=== PATIENT | female | born 1960 | race African-American/Black ===

== ENCOUNTER 2017-04-04 21:36 | Emergency (ER) | payer MEDICAID ==
[~2017-04-04] VITALS: Ht 175.3 cm; Wt 63.0 kg
[~2017-04-04 21:36] MED LIST: LEVE500T78 PO; OMEP20CA4 PO; PANT40TA4 PO; POTA10TA19 PO; RANI300T4 PO; SUCR1ORA PO
[2017-04-04 21:39] VITALS: BP 131/59
== END 2017-04-05 02:15 | disposition left against medical advice (07) ==
LOC: ER 21:36
DX: R10.32 Left lower quadrant pain (principal); R10.31 Right lower quadrant pain; Z53.21 Procedure and treatment not carried out due to patient leaving prior to being seen by health care provider

== ENCOUNTER 2017-05-10 20:15 | Emergency (ER) | payer MEDICAID ==
[~2017-05-10] VITALS: Ht 165.1 cm; Wt 68.2 kg
[2017-05-10] MEDS ORDERED: KETOROLAC 30MG/ML VIAL IV STA (21:45)
[2017-05-10] MEDS ORDERED: SODIUM CHLORIDE 0.9% 1,000 ML IV ONE (21:45)
[2017-05-10 22:47] LABS: BASOPHILS % 0.6 % (0.0-2.0); EOSINOPHILS % 4.3 % (0.0-5.0); HEMATOCRIT. 32.5 % (36.0-48.0); HEMOGLOBIN. 10.5 g/dL (12.0-16.0); LYMPHOCYTES % 24.1 % (20.0-50.0); MEAN CORPUSCULAR HEMOGLOBIN 27.4 pg (28.0-32.0); MEAN CORPUSCULAR VOLUME 84.6 fL (81.0-99.0); MEAN PLATELET VOLUME 7.6 fl (7.4-10.4); MONOCYTES % 7.7 % (2.0-8.0); NEUTROPHILS % 63.3 % (40.0-76.0); PLATELET 202 x1000/uL (130-400); RED BLOOD CELL COUNT 3.84 mill/uL (4.2-5.4); RED CELL DISTRIBUTION WIDTH 14.8 % (11.6-14.6)
[2017-05-10 22:53] LABS: INR 1.1; PROTHROMBIN TIME 11.1 sec (9.4-11.6)
[2017-05-10 22:54] LABS: CHLORIDE 108 mEq/L (98-107)
[2017-05-10 22:56] LABS: CARBON DIOXIDE 28 mEq/L (21-32)
[2017-05-10 23:50] LABS: CLARITY URINE CLEAR (CLEAR); COLOR URINE DARK YELLOW (YELLOW); GLUCOSE URINE NEGATIVE (NEGATIVE); KETONES URINE NEGATIVE (NEGATIVE); LEUKOCYTE ESTERASE URINE 2+ (NEGATIVE); NITRITE URINE NEGATIVE (NEGATIVE); OCCULT BLOOD URINE NEGATIVE (NEGATIVE); PH URINE 5.5 (4.5-8.0); PROTEIN URINE TRACE (NEGATIVE); SPECIFIC GRAVITY URINE 1.028 (1.005-1.030)
[2017-05-11] VITALS: BP 135/76
== END 2017-05-11 00:30 | disposition home or self-care (01) ==
LOC: ER 20:15
DX: N30.00 Acute cystitis without hematuria (principal); Z87.19 Personal history of other diseases of the digestive system
CPT/HCPCS: 36415; 74176; 80053; 81001; 83690; 85025; 85610; 96361; 96374; 99285; J1885; J7030; Z7610

== ENCOUNTER 2017-05-25 23:05 | Emergency (ER) | payer MEDICAID ==
[~2017-05-25] VITALS: Ht 160 cm; Wt 64.0 kg
[2017-05-26 02:00] LABS: BASOPHILS % 0.6 % (0.0-2.0); EOSINOPHILS % 3.9 % (0.0-5.0); HEMATOCRIT. 31.1 % (36.0-48.0); HEMOGLOBIN. 10.2 g/dL (12.0-16.0); LYMPHOCYTES % 27.3 % (20.0-50.0); MEAN CORPUSCULAR HEMOGLOBIN 27.5 pg (28.0-32.0); MEAN CORPUSCULAR VOLUME 83.8 fL (81.0-99.0); MEAN PLATELET VOLUME 7.1 fl (7.4-10.4); MONOCYTES % 8.1 % (2.0-8.0); NEUTROPHILS % 60.1 % (40.0-76.0); PLATELET 191 x1000/uL (130-400); RED BLOOD CELL COUNT 3.71 mill/uL (4.2-5.4); RED CELL DISTRIBUTION WIDTH 14.5 % (11.6-14.6)
[2017-05-26 02:06] LABS: CHLORIDE 108 mEq/L (98-107)
[2017-05-26 02:16] LABS: CARBON DIOXIDE 29 mEq/L (21-32)
[2017-05-26 02:23] LABS: CLARITY URINE CLEAR (CLEAR); COLOR URINE YELLOW (YELLOW); GLUCOSE URINE NEGATIVE (NEGATIVE); KETONES URINE NEGATIVE (NEGATIVE); LEUKOCYTE ESTERASE URINE 2+ (NEGATIVE); NITRITE URINE NEGATIVE (NEGATIVE); OCCULT BLOOD URINE NEGATIVE (NEGATIVE); PROTEIN URINE NEGATIVE (NEGATIVE)
[2017-05-26 02:52] VITALS: BP 122/79
== END 2017-05-26 03:54 | disposition home or self-care (01) ==
LOC: ER 23:05
DX: R10.9 Unspecified abdominal pain (principal); G89.29 Other chronic pain; G40.909 Epilepsy, unspecified, not intractable, without status epilepticus; Z87.19 Personal history of other diseases of the digestive system
CPT/HCPCS: 36415; 80053; 81001; 85025; 99284

== ENCOUNTER 2017-07-25 11:13 | Emergency (ER) | payer MEDICAID ==
[~2017-07-25] VITALS: Ht 157.5 cm; Wt 80.0 kg
[2017-07-25] MEDS ORDERED: SODIUM CHLORIDE 0.9% 1,000 ML IV ONE (12:16)
[2017-07-25] MEDS ORDERED: LEVETIRACETAM 500MG PREMIX 100 ML IV ONE (12:30)
[2017-07-25 12:57] LABS: BASOPHILS % 0.6 % (0.0-2.0); EOSINOPHILS % 3.8 % (0.0-5.0); HEMATOCRIT. 33.2 % (36.0-48.0); HEMOGLOBIN. 11.1 g/dL (12.0-16.0); LYMPHOCYTES % 26.8 % (20.0-50.0); MEAN CORPUSCULAR HEMOGLOBIN 28.6 pg (28.0-32.0); MEAN CORPUSCULAR VOLUME 85.4 fL (81.0-99.0); MEAN PLATELET VOLUME 7.4 fl (7.4-10.4); MONOCYTES % 7.9 % (2.0-8.0); NEUTROPHILS % 60.9 % (40.0-76.0); PLATELET 177 x1000/uL (130-400); RED BLOOD CELL COUNT 3.89 mill/uL (4.2-5.4); RED CELL DISTRIBUTION WIDTH 15.2 % (11.6-14.6)
[2017-07-25 13:00] LABS: INR 1.1; PROTHROMBIN TIME 11.2 sec (9.4-11.6)
[2017-07-25 13:05] LABS: CLARITY URINE CLEAR (CLEAR); COLOR URINE YELLOW (YELLOW); GLUCOSE URINE NEGATIVE (NEGATIVE); KETONES URINE NEGATIVE (NEGATIVE); LEUKOCYTE ESTERASE URINE 2+ (NEGATIVE); NITRITE URINE NEGATIVE (NEGATIVE); OCCULT BLOOD URINE NEGATIVE (NEGATIVE); PROTEIN URINE NEGATIVE (NEGATIVE)
[2017-07-25 13:08] LABS: AMMONIA 29 uMol/L (<32)
[2017-07-25 13:17] LABS: CARBON DIOXIDE 28 mEq/L (21-32); CHLORIDE 107 mEq/L (98-107); ETHANOL BLOOD < 10 mg/dL; TROPONIN I < 0.02 ng/mL (0.00-0.04)
[2017-07-25 13:22] LABS: CARBAMAZEPINE < 0.5 ug/mL (4-12); PHENOBARBITAL < 2.1 ug/mL (15.0-40.0); VALPROIC ACID < 3.0 ug/mL (50-100)
[2017-07-25 13:33] LABS: *AMPHETAMINES SCREEN URINE NEGATIVE (NEGATIVE); *BARBITURATES SCREEN URINE NEGATIVE (NEGATIVE); *BENZODIAZEPINES SCREEN URINE NEGATIVE (NEGATIVE); *COCAINE SCREEN URINE NEGATIVE (NEGATIVE); CANNABINOID URINE SCREEN NEGATIVE (NEGATIVE); METHADONE URINE SCREEN NEGATIVE (NEGATIVE); OPIATES URINE SCREEN NEGATIVE (NEGATIVE); PHENCYCLIDINE URINE SCREEN NEGATIVE (NEGATIVE)
[2017-07-25 15:21] VITALS: BP 120/80
== END 2017-07-25 15:48 | disposition home or self-care (01) ==
LOC: ER 11:13
DX: G40.909 Epilepsy, unspecified, not intractable, without status epilepticus (principal); D72.819 Decreased white blood cell count, unspecified; D64.9 Anemia, unspecified
CPT/HCPCS: 36415; 80053; 80156; 80165; 80184; 80185; 80305; 81001; 82140; 83880; 84484; 85025; 85610; 93005; 96365; 99285; G0482; J1953; Z7610; J7030

== ENCOUNTER 2017-08-25 07:14 | Emergency (ER) | payer MEDICAID ==
[~2017-08-25] VITALS: Ht 167.6 cm; Wt 62.0 kg
[2017-08-25 08:15] LABS: EOSINOPHILS % 4.5 % (0.0-5.0); HEMATOCRIT. 33.2 % (36.0-48.0); HEMOGLOBIN. 10.9 g/dL (12.0-16.0); LYMPHOCYTES % 24.8 % (20.0-50.0); MEAN CORPUSCULAR HEMOGLOBIN 28.1 pg (28.0-32.0); MEAN CORPUSCULAR VOLUME 85.6 fL (81.0-99.0); MEAN PLATELET VOLUME 7.5 fl (7.4-10.4); MONOCYTES % 6.7 % (2.0-8.0); PLATELET 220 x1000/uL (130-400); RED BLOOD CELL COUNT 3.88 mill/uL (4.2-5.4); RED CELL DISTRIBUTION WIDTH 15.3 % (11.6-14.6)
[2017-08-25 08:27] LABS: CARBON DIOXIDE 29 mEq/L (21-32); CHLORIDE 108 mEq/L (98-107)
[2017-08-25 10:11] LABS: CLARITY URINE CLEAR (CLEAR); COLOR URINE YELLOW (YELLOW); KETONES URINE NEGATIVE (NEGATIVE); LEUKOCYTE ESTERASE URINE 3+ (NEGATIVE); NITRITE URINE NEGATIVE (NEGATIVE); OCCULT BLOOD URINE NEGATIVE (NEGATIVE); PH URINE 7.5 (4.5-8.0); PROTEIN URINE NEGATIVE (NEGATIVE); SPECIFIC GRAVITY URINE 1.011 (1.005-1.030)
[2017-08-25 11:55] VITALS: BP 129/76
== END 2017-08-25 12:00 | disposition home or self-care (01) ==
LOC: ER 07:14
DX: G40.909 Epilepsy, unspecified, not intractable, without status epilepticus (principal); R10.9 Unspecified abdominal pain; G89.29 Other chronic pain
CPT/HCPCS: 36415; 71010; 80053; 81001; 85025; 99285

== ENCOUNTER 2017-10-08 18:38 | Emergency (ER) | payer MEDICAID ==
[~2017-10-08] VITALS: Ht 165.1 cm; Wt 65.0 kg
[2017-10-08 18:41] VITALS: BP 127/70
== END 2017-10-08 22:00 | disposition left against medical advice (07) ==
LOC: ER 18:48
DX: R10.9 Unspecified abdominal pain (principal); Z53.21 Procedure and treatment not carried out due to patient leaving prior to being seen by health care provider

== ENCOUNTER 2025-05-22 20:20 | Inpatient (IN) | payer MEDICARE, MEDICAID ==
[~2025-05-22] VITALS: Ht 160 cm; Wt 61.0 kg
[~2025-05-22 20:20] MED LIST changes: +LEVE-20 PO; -LEVE500T78 PO; -PANT40TA4 PO; +PANT40TA51 PO; -POTA10TA19 PO; +[UNRECOGNIZED DRUG - CODE] PO
[2025-05-22 20:23] VITALS: O2SAT 95
[2025-05-22 21:57] LABS: BASOPHILS % 0.7 % (0.0-2.0); EOSINOPHILS % 3.3 % (0.0-5.0); HEMATOCRIT. 34.9 % (36.0-48.0); HEMOGLOBIN. 11.0 g/dL (12.0-16.0); LYMPHOCYTES % 25.9 % (20.0-50.0); MEAN PLATELET VOLUME 7.2 fl (7.4-10.4); MONOCYTES % 5.6 % (2.0-8.0); NEUTROPHILS % 64.5 % (40.0-76.0); PLATELET 178 x1000/uL (130-400); RED BLOOD CELL COUNT 4.08 mill/uL (4.2-5.4); RED CELL DISTRIBUTION WIDTH 14.8 % (11.6-14.6)
[2025-05-22 22:12] LABS: CREATININE 0.6 mg/dL (0.6-1.0); UREA NITROGEN BLOOD 8 mg/dL (9-23)
[2025-05-22 22:14] LABS: ASPARTATE AMINOTRANSFERASE 216 IU/L (<34); BILIRUBIN DIRECT 0.2 mg/dL (<=3.0); BILIRUBIN TOTAL 0.4 mg/dL (0.1-1.0); PROTEIN TOTAL 7.3 g/dL (6.0-8.3)
[2025-05-22] MEDS: ONDANSETRON HCL 4MG/2ML INJ IV NR (22:31)
[2025-05-22] MEDS: MORPHINE SULFATE 4 MG/ML INJ (FOR IV/IM USE) IV NR (22:31)
[2025-05-23] MEDS: SODIUM CHLORIDE 0.9% 1,000 ML IV ONE (00:20)
[2025-05-23] MEDS ORDERED: MORPHINE SULFATE 4 MG/ML INJ (FOR IV/IM USE) IV PRN (01:15)
[2025-05-23] MEDS ORDERED: ACETAMINOPHEN 325MG TABLET PO PRN (01:15)
[2025-05-23] MEDS ORDERED: MAGNESIUM/ALUMINUM HYDROXIDE/SIMETHICONE 30ML UDC PO PRN (01:15)
[2025-05-23] MEDS ORDERED: CLONIDINE 0.1MG TABLET PO PRN (01:15)
[2025-05-23] MEDS ORDERED: ONDANSETRON HCL 4MG/2ML INJ IV PRN (01:15)
[2025-05-23] MEDS ORDERED: ZOLPIDEM TARTRATE 5MG TABLET PO PRN (01:15)
[2025-05-23] MEDS ORDERED: NALOXONE HCL 0.4MG/ML VIAL IV PRN (01:30)
[2025-05-23] MEDS: PIPERACILLIN/TAZO 3.375G/50ML 50 ML IV NR (01:35)
[2025-05-23] MEDS: SODIUM CHLORIDE 0.9% (SEPSIS BOLUS) IV NR (01:35)
[2025-05-23] MEDS: SODIUM CHLORIDE 0.9% 1,000 ML IV SCH (02:21)
[2025-05-23 03:56] LABS: CLARITY URINE CLEAR (CLEAR); COLOR URINE YELLOW (YELLOW); GLUCOSE URINE NEGATIVE (NEGATIVE); KETONES URINE NEGATIVE (NEGATIVE); LEUKOCYTE ESTERASE URINE NEGATIVE (NEGATIVE); NITRITE URINE NEGATIVE (NEGATIVE); OCCULT BLOOD URINE NEGATIVE (NEGATIVE); PH URINE 8.0 (4.5-8.0); PROTEIN URINE NEGATIVE (NEGATIVE); SPECIFIC GRAVITY URINE 1.047 (1.005-1.030); UROBILINOGEN URINE 2.0 E.U./dL (0.2-1.0)
[2025-05-23 04:10] LABS: *AMPHETAMINES SCREEN URINE NEGATIVE (NEGATIVE); *BARBITURATES SCREEN URINE NEGATIVE (NEGATIVE); *BENZODIAZEPINES SCREEN URINE NEGATIVE (NEGATIVE); *COCAINE SCREEN URINE NEGATIVE (NEGATIVE); CANNABINOID URINE SCREEN NEGATIVE (NEGATIVE); ECSTASY MDMA SCREEN URINE NEGATIVE (NEGATIVE); METHADONE URINE SCREEN NEGATIVE (NEGATIVE); OPIATES URINE SCREEN PRESUMPTIVE POSITIVE (NEGATIVE); PHENCYCLIDINE URINE SCREEN NEGATIVE (NEGATIVE)
[2025-05-23 05:04] LABS: BACTERIA URINE NONE SEEN; RBC URINE NONE SEEN /hpf (0-2); SQUAMOUS EPITHELIAL CELL URINE 1+ /lpf (RARE/1+); WBC URINE NONE SEEN /hpf (0-2)
[2025-05-23 06:20] VITALS: BP 123/62; PULSE 65; RESP 18; TEMP 36.2; O2SAT 100
[2025-05-23 06:30] VITALS: BP 123/62; PULSE 65; RESP 18; TEMP 36.1956
[2025-05-23] MEDS ORDERED: IOHEXOL-300 100 ML BOTTLE ONE (07:19)
[2025-05-23 08:00] VITALS: BP 129/72; PULSE 64; RESP 18; TEMP 36.2; O2SAT 100
[2025-05-23] MEDS: PANTOPRAZOLE SODIUM 40 MG/VIAL IV SCH (09:15)
[2025-05-23] MEDS: PIPERACILLIN/TAZO 3.375G/50ML 50 ML IV SCH (09:15)
[2025-05-23] MEDS: ENOXAPARIN 40MG/0.4ML SYR SUBCUT SCH (09:16)
[2025-05-23 16:00] VITALS: BP 143/72; PULSE 66; RESP 18; TEMP 36.3; O2SAT 99
[2025-05-23 20:00] VITALS: BP 132/72; PULSE 66; RESP 20; TEMP 36.1; O2SAT 98
[2025-05-23] MEDS ORDERED: LEVETIRACETAM 500MG in NACL 100ML PREMIX IV SCH (21:00)
[2025-05-23] MEDS: LEVETIRACETAM 500MG PREMIX 100ML IV SCH (21:08)
[2025-05-24] VITALS: BP 133/64; PULSE 62; RESP 20; TEMP 35.6; O2SAT 97
[2025-05-24 04:00] VITALS: BP 122/64; PULSE 68; RESP 18; TEMP 36.1; O2SAT 98
[2025-05-24 07:08] LABS: BASOPHILS % 0.8 % (0.0-2.0); EOSINOPHILS % 6.2 % (0.0-5.0); HEMATOCRIT. 33.6 % (36.0-48.0); HEMOGLOBIN. 11.0 g/dL (12.0-16.0); LYMPHOCYTES % 28.8 % (20.0-50.0); MEAN PLATELET VOLUME 7.8 fl (7.4-10.4); MONOCYTES % 5.2 % (2.0-8.0); NEUTROPHILS % 59.0 % (40.0-76.0); PLATELET 155 x1000/uL (130-400); RED BLOOD CELL COUNT 3.99 mill/uL (4.2-5.4); RED CELL DISTRIBUTION WIDTH 14.3 % (11.6-14.6)
[2025-05-24 07:27] LABS: CREATININE 0.6 mg/dL (0.6-1.0); UREA NITROGEN BLOOD 5 mg/dL (9-23)
[2025-05-24 07:29] LABS: ASPARTATE AMINOTRANSFERASE 201 IU/L (<34)
[2025-05-24 07:30] LABS: BILIRUBIN DIRECT 0.4 mg/dL (<=3.0); BILIRUBIN TOTAL 1.0 mg/dL (0.1-1.0); PROTEIN TOTAL 6.5 g/dL (6.0-8.3)
[2025-05-24 08:00] VITALS: BP 133/69; PULSE 71; RESP 18; TEMP 36.2; O2SAT 99
[2025-05-24] MEDS ORDERED: SKIN ADHESIVE 0.7 GM EA TOP ONE ×2 (09:39→17:42)
[2025-05-24] MEDS ORDERED: BUPIVACAINE HCL/PF 0.5% (5MG/ML) 10ML ONE ×2 (09:39→16:50)
[2025-05-24] MEDS: DEXTROSE 50% WATER 50ML SYRINGE IV NR ×2 (09:41→14:59)
[2025-05-24] MEDS: DEXT 5%/0.45% NACL 1000ML 1,000 ML IV ONE (09:41)
[2025-05-24 12:00] VITALS: BP 132/75; PULSE 69; RESP 20; TEMP 36.3; O2SAT 100
[2025-05-24] MEDS ORDERED: INDOCYANINE GREEN 25 MG VIAL IV ONE (13:16)
[2025-05-24] MEDS: HYDROCODONE/ACETAMINOPHEN 5/325MG TABLET PO PRN (13:51)
[2025-05-24] MEDS ORDERED: DEXTROSE 50% WATER 50ML SYRINGE IV ONE (14:50)
[2025-05-24] MEDS: KCL 20MEQ/100ML PREMIX 100 ML IV SCH (15:22)
[2025-05-24] MEDS ORDERED: LIDOCAINE HCL 1% 10 MG/ML 10ML VIAL ONE ×2 (15:25→15:44)
[2025-05-24] MEDS ORDERED: ACETAMINOPHEN 1000MG/100ML 100 ML IV ONE (15:42)
[2025-05-24] MEDS ORDERED: FAMOTIDINE 20MG/2ML VIAL IV ONE (15:42)
[2025-05-24] MEDS ORDERED: ROCURONIUM BROMIDE 10MG/ML VIAL 5ML IV ONE ×2 (15:42→17:06)
[2025-05-24] MEDS ORDERED: CEFAZOLIN SODIUM 1000MG/VIAL ONE (15:44)
[2025-05-24] MEDS ORDERED: PROPOFOL 200MG/20ML VIAL IV ONE (15:44)
[2025-05-24] MEDS ORDERED: ONDANSETRON HCL 4MG/2ML INJ ONE (15:44)
[2025-05-24] MEDS ORDERED: DEXAMETHASONE 4MG/ML 1ML VIAL ONE (15:44)
[2025-05-24] MEDS ORDERED: PHENYLEPHRINE HCL 10MG/ML 1ML IV ONE (15:45)
[2025-05-24 16:00] VITALS: BP 130/79; PULSE 70; RESP 18; TEMP 36.5; O2SAT 99
[2025-05-24] MEDS ORDERED: HYDROMORPHONE HCL/PF 1MG/ML INJ ONE ×2 (16:14→17:50)
[2025-05-24] MEDS ORDERED: LABETALOL 5MG/ML 4ML INJ IV PRN (16:15)
[2025-05-24] MEDS ORDERED: HYDRALAZINE 20MG/ML VIAL IV PRN ×2 (16:15)
[2025-05-24] MEDS ORDERED: HYDROMORPHONE HCL/PF 2MG/ML INJ IV PRN (16:15)
[2025-05-24] MEDS: HYDROMORPHONE HCL/PF 1MG/ML INJ IV PRN (18:20)
[2025-05-24] MEDS: ONDANSETRON HCL 4MG/2ML INJ IV PRN (18:20)
[2025-05-24 20:00] VITALS: BP 143/71; PULSE 60; RESP 20; TEMP 36.1; O2SAT 98
[2025-05-24] MEDS ORDERED: DEXTROSE 50% WATER 50ML SYRINGE IV PRN (20:30)
[2025-05-24 21:09] LABS: INR 1.0
[2025-05-24] MEDS: BLOOD SUGAR DIAGNOSTIC STRIP TEST SCH (21:28)
[2025-05-25] VITALS: BP 130/85; PULSE 76; RESP 20; TEMP 36.5; O2SAT 100
[2025-05-25 04:00] VITALS: BP 145/77; PULSE 75; RESP 20; TEMP 36.2; O2SAT 99
[2025-05-25 08:09] VITALS: BP 141/77; PULSE 77; RESP 18; TEMP 36.3; O2SAT 100
[2025-05-25 08:41] LABS: BASOPHILS % 0.1 % (0.0-2.0); EOSINOPHILS % 0.1 % (0.0-5.0); HEMATOCRIT. 35.9 % (36.0-48.0); HEMOGLOBIN. 11.9 g/dL (12.0-16.0); LYMPHOCYTES % 10.7 % (20.0-50.0); MEAN PLATELET VOLUME 7.4 fl (7.4-10.4); MONOCYTES % 6.3 % (2.0-8.0); NEUTROPHILS % 82.8 % (40.0-76.0); PLATELET 187 x1000/uL (130-400); RED BLOOD CELL COUNT 4.27 mill/uL (4.2-5.4); RED CELL DISTRIBUTION WIDTH 14.2 % (11.6-14.6)
[2025-05-25 08:51] LABS: CREATININE 0.6 mg/dL (0.6-1.0)
[2025-05-25 08:52] LABS: UREA NITROGEN BLOOD < 5 mg/dL (9-23)
[2025-05-25 08:53] LABS: ASPARTATE AMINOTRANSFERASE 102 IU/L (<34)
[2025-05-25 08:54] LABS: BILIRUBIN DIRECT 0.2 mg/dL (<=3.0); BILIRUBIN TOTAL 0.6 mg/dL (0.1-1.0); PROTEIN TOTAL 7.3 g/dL (6.0-8.3)
[2025-05-25 11:51] VITALS: BP 133/72; PULSE 74; RESP 18; TEMP 36.1; O2SAT 100
[2025-05-25 16:32] VITALS: BP 142/82; PULSE 78; RESP 18; TEMP 36.3; O2SAT 100
[2025-05-25 20:00] VITALS: BP 121/75; PULSE 85; RESP 20; TEMP 36.3; O2SAT 98
[2025-05-26] VITALS: BP 124/75; PULSE 78; RESP 20; TEMP 36.3; O2SAT 94
[2025-05-26 04:00] VITALS: BP 139/69; PULSE 82; RESP 20; TEMP 36.4; O2SAT 97
[2025-05-26 08:18] VITALS: BP 126/64; PULSE 75; RESP 19; TEMP 36.7; O2SAT 94
[2025-05-26 11:11] LABS: BASOPHILS % 0.5 % (0.0-2.0); EOSINOPHILS % 2.5 % (0.0-5.0); HEMATOCRIT. 31.0 % (36.0-48.0); HEMOGLOBIN. 10.2 g/dL (12.0-16.0); LYMPHOCYTES % 30.1 % (20.0-50.0); MEAN PLATELET VOLUME 7.4 fl (7.4-10.4); MONOCYTES % 7.9 % (2.0-8.0); NEUTROPHILS % 59.0 % (40.0-76.0); PLATELET 186 x1000/uL (130-400); RED BLOOD CELL COUNT 3.72 mill/uL (4.2-5.4); RED CELL DISTRIBUTION WIDTH 14.2 % (11.6-14.6)
[2025-05-26 11:18] LABS: CREATININE 0.6 mg/dL (0.6-1.0); UREA NITROGEN BLOOD < 5 mg/dL (9-23)
[2025-05-26 11:40] VITALS: BP 134/79; PULSE 71; RESP 18; TEMP 36.5; O2SAT 97
[2025-05-26] MEDS ORDERED: HYDR-4001 PO (13:32)
[2025-05-26] MEDS ORDERED: [UNRECOGNIZED DRUG - CODE] PO (13:32)
[2025-05-26] MEDS: KCL 20MEQ/100ML PREMIX 100 ML IV SCH (14:13)
[2025-05-26 15:44] VITALS: BP 138/90; PULSE 79; RESP 18; TEMP 36.4; O2SAT 95
[2025-05-26 18:59] VITALS: BP 138/90; PULSE 79; RESP 18; TEMP 97.5
== END 2025-05-26 19:43 | disposition home health service (06) | DRG 417 ==
LOC: ER 20:20 → 7WST 05-23 01:11 → EDBEDREQ 05-23 01:31 → EDBEDREQTM 05-23 01:31 → EDBEDREQSVC 05-23 01:31 → ENRESERV 05-23 05:06
PROVIDERS: ADMIT Internal Medicine; ATTEND Internal Medicine
PROC: 0FT44ZZ Resection of Gallbladder, Percutaneous Endoscopic Approach (ICD-10-PCS; principal; 2025-05-24)
DX: K80.10 Calculus of gallbladder with chronic cholecystitis without obstruction (principal); K85.10 Biliary acute pancreatitis without necrosis or infection; G40.909 Epilepsy, unspecified, not intractable, without status epilepticus; I10 Essential (primary) hypertension; Z79.899 Other long term (current) drug therapy; Z55.6 Problems related to health literacy
CPT/HCPCS: 80076; 80048; 83690; 85025; 71045; 76705; 93005; 96374; 96375; 99291; J2405; J2270; 36415; 74177; 78227; 80305; 81003; 82150; 82962; 83605; 84443; 88304; 93970; 97162; A9537; J0665; J0690; J1100; J1171; J1308; J1650; J1953; J2003; J2371; J2470; J2543; J2704; J3480; J3490; J7030; Q9957; Q9967; J0131